=== PATIENT | male | born 1950 | race Caucasian/White ===

== ENCOUNTER 2022-01-17 15:10 | Emergency (ER) | payer MEDICARE, MEDICAID, SELFPAY ==
[2022-01-17] VITALS (12 sets, daily range): BP systolic 105–142; BP diastolic 64–89; PULSE 92–130; RESP 10–18; O2SAT 85–100
--- NOTE | ~2022-01-17 | XR_ITS ---
EXAMINATION: XR chest 1V portable Exam Date/Time: 01/17/2022 15:40 CDT HISTORY: sob, LOW O2 STATS, DIALYSIS PATIENT Comparison: None available. RESULT: Lines, tubes, and devices: Left chest pacer/defibrillator, with intact leads. Lungs and pleura: Subsegmental right mid and lower lung opacities. Right angle blunting. Cardiomediastinal silhouette: Stable. Other: No acute osseous or upper abdominal finding. IMPRESSION: Right lower lung atelectasis/consolidation. Small right pleural effusion Reviewed, dictated and finalized at location K.
--- NOTE | 2022-01-17 15:34 | ECG_ITS ---
Measurements Intervals [place] Rate: 89 P: 251 AR: 0 QRS: -5 QRSD: 199 T: 205 QT: 448 QTc: 546 Interpretive Statements POSSIBLE ATRIAL FLUTTER LEFT BUNDLE BRANCH BLOCK ABNORMAL ECG NO PREVIOUS ECG AVAILABLE FOR COMPARISON Electronically Signed On 01-17-2022 15:47:16 CDT by Saulo Bettencourt M.D.
[2022-01-17 15:47] LABS: Basophils Percent Auto 0.4 % (0.2-1.2); Eosinophils Percent Auto 0.2 % (0-4.4); Hematocrit 38.2 % (42.0-52.0); Hemoglobin 11.3 g/dL (14.0-18.0); Immature Granulocyte Absolute 0.05 K/mm3 (0.00-0.031); Immature Granulocyte Percent A 0.5 % (0-0.5); Lymphocytes Absolute Auto 0.58 K/mm3 (0.9-3.2); Lymphocytes Percent Auto 5.8 % (18.3-44.2); Mean Corpuscular HGB Conc 29.6 g/dl (32-36); Mean Corpuscular Hemoglobin 29.6 pg (26-34); Mean Platelet Volume 10.1 fl (7.4-10.4); Monocytes Absolute Auto 0.6 K/mm3 (0.1-0.6); Monocytes Percent Auto 5.7 % (2.6-8.5); Neutrophils Absolute Auto 8.7 K/mm3 (1.3-6.7); Neutrophils Percent Auto 87.4 % (45.5-73.1); Nucleated Red Blood Cells Absolute Auto 0.1 K/mm3 (0.0-0.012); Platelet Count Result 341 k/mm3 (150-375); Red Blood Count 3.82 M/mm3 (4.6-6.20); Red Cell Distribution Width 20.1 % (11.5-14.5); White Blood Count 9.9 K/mm3 (4.5-10.0)
[2022-01-17 16:04] LABS: Albumin Level 4.4 g/dL (3.5-5.1); Alkaline Phosphatase 207 U/L (38-126); Anion Gap 34 mmol/L (8-16); Aspartate Amino Transferase 116 U/L (17-59); Bilirubin,Total 0.6 mg/dL (0.2-1.3); Blood Urea Nitrogen 67 mg/dL (9-20); Calcium 11.4 mg/dL (8.4-10.2); Carbon Dioxide 15 mmol/L (22-30); Chloride 84 mmol/L (98-107); Estimated CRCL calculation 7 ml/min; Estimated Glomerular Filt Rate 6; Glucose 304 mg/dL (65-110); Potassium 7.4 mmol/L (3.4-5.0); Sodium 133 mmol/L (137-145)
[2022-01-17 16:09] LABS: Prothrombin Time 21.6 Seconds (11.1-14.7)
[2022-01-17 16:13] LABS: Alanine Aminotransferase 71 U/L (6-50)
[2022-01-17] MEDS: INSULIN HUMAN REGULAR (*BKC) 100 UNITS/ML IV PUSH (16:13)
[2022-01-17] MEDS: SODIUM ZIRCONIUM CYCLOSILICATE 10 GM POWD.PACK PO (16:27)
--- NOTE | 2022-01-17 16:43 | ED.SOB ---
HPI - SOB/Dyspnea General Chief Complaint: Shortness of Breath/Dyspnea <Grisel Shoemaker PA-C - Last Filed: 01/17/22 19:37> Stated Complaint: sob <Grisel Joceline Shoemaker PA-C - Last Filed: 01/17/22 19:37> Time Seen by Provider: 01/17/22 15:11 <Grisel Shoemaker PA-C - Last Filed: 01/17/22 19:37> Source: patient <Grisel RADHA Armendariz Last Filed: 01/17/22 19:37> Mode of arrival: EMS <RADHA Grey Last Filed: 01/17/22 19:37> Limitations: other (poor historian) <Grisel Shoemaker PA-C - Last Filed: 01/17/22 19:37> History of Present Illness HPI Narrative: This is a 71-year-old male that presents to the emergency department for shortness of breath. Ongoing over the last 2 days. Reports history of end-stage renal disease. Is currently on dialysis Wednesday, Wednesday and Wednesday. He only got part of his treatment on Wednesday. He did not go to his treatment at all yesterday. Reports he was having trouble getting a ride to dialysis. His aviation electrical technician is Dr. Laughlin. Denies chest pain. <Grisel Shoemaker PA-C - Last Filed: 01/17/22 19:37> Related Data Allergies/Adverse Reactions: Allergies Allergy/AdvReac Type Severity Reaction Status Date / Time No Known Allergies Allergy Verified 01/17/22 15:38 <Grisel Shoemaker PA-C - Last Filed: 01/17/22 19:37> Review of Systems Review of Systems: CONSTITUTIONAL: Denies fever CARDIOVASCULAR: Reports edema. Denies chest pain RESPIRATORY: Reports dyspnea. <Grisel Shoemaker PA-C - Last Filed: 01/17/22 19:37> All systems reviewed & are unremarkable except as noted in HPI and below <RADHA Grey Last Filed: 01/17/22 19:37> [facility] Past Medical History Medical History: Medical History (Updated 01/18/22 @ 00:00 by Background Daemon) History of diabetes mellitus History of end stage renal disease <Grisel Shoemaker PA-C - Last Filed: 01/17/22 19:37> Social History Social History: Social History (Updated 01/17/22 @ 16:50 by Grisel Shoemaker PA-C) Substance use: never <Grisel Shoemaker PA-C - Last Filed: 01/17/22 19:37> Exam Narrative: GENERAL: Chronically ill-appearing, well-nourished, and in no acute distress. HEAD: Normocephalic, atraumatic. EYES: EOMI. CHEST: Clear to auscultation. No respiratory distress. No wheezes rales or rhonchi HEART: Regular rate and rhythm. No murmur heard. Normal peripheral pulses. ABDOMEN: Soft, nontender, nondistended, normal active bowel sounds. EXTREMITIES: Normal range of motion. Right lower extremity AKA. Left lower extremity with 1+ pitting edema. Ulcerations noted at the toes without surrounding erythema to suggest infection. I am unable to Doppler a DP pulse. I can Doppler a PT pulse SKIN: Warm, dry, no rash. NEURO: No focal deficits. Alert and oriented x3. PSYCH: Normal mood and affect <Grisel Shoemaker PA-C - Last Filed: 01/17/22 19:37> Course PRECISION DANCER/PA Physician Supervision For this patient encounter, I reviewed the PRECISION DANCER or PA documentation, treatment plan, and medical decision making; and I had [id number] time with this patient. <Fabian Castro MD - Last Filed: 01/18/22 07:45> Consultations Consultation #1: Spoke with nephrology, Dr. Gao about patient and workup who reports patient would not be able to get dialysis until tomorrow. <Grisel Shoemaker PA-C - Last Filed: 01/17/22 19:37> Date: 01/17/22 <Grisel Shoemaker PA-C - Last Filed: 01/17/22 19:37> Consultation #2: Spoke with hospitalist at [facility] as this was patient's preference. Accepts transfer. Patient has a bed in the ICU. They will be able to do emergent dialysis <Grisel Shoemaker PA-C - Last Filed: 01/17/22 19:37> Date: 01/17/22 <Grisel Shoemaker PA-C - Last Filed: 01/17/22 19:37> Vital Signs Vital signs: Vital Signs Pulse Rate 92 01/17/22 15:36 Pulse Rate 107 H 01/17/22 19:03 Respiratory Rate 17 01/17/22 19:03 Blood Pressure 142/89 H 10
[2022-01-17] MEDS: SODIUM BICARBONATE 8.4% 50 MEQ/50 ML VIAL IV PUSH (17:28)
--- NOTE | 2022-01-17 18:40 | PC.NURSE ---
Patient reports he does not make urine.
[2022-01-17 18:44] LABS: Potassium 6.7 mmol/L (3.4-5.0)
[2022-01-17 18:49] LABS: SARS-CoV-2 RNA PCR Negative
--- NOTE | 2022-01-17 19:23 | PC.NURSE ---
rn report to nic ferris at [facility] ic[facility] . ems eta 7 min at this time.
--- NOTE | 2022-01-17 19:32 | PC.NURSE ---
Patient care report given to EMS crew for patient to be transferred to [facility]. All questions answered at this time. Paperwork given to EMS crew. Patient alert and orientated x4 and aware of transfer. Patient okay with transfer.
== END 2022-01-17 19:48 | disposition short-term general hospital (02) ==
PROVIDERS: Emergency Medicine; Physician Assistant; Emergency Provider Emergency Medicine
DX: E87.5 Hyperkalemia (principal); N18.6 End stage renal disease; Z99.2 Dependence on renal dialysis; R06.02 Shortness of breath; Z20.822 Contact with and (suspected) exposure to COVID-19
CPT/HCPCS: 36415; 36556; 71045; 80053; 84132; 85025; 85610; 93005; 96374; 96375; 99285; A9270; C1751; C9803; J1815; U0003; U0005